=== PATIENT | female | born 1970 ===

== ENCOUNTER 2018-06-14 07:41 | Emergency (ER) | payer OTHER ==
[2018-06-14 07:57] VITALS: RESP 18; TEMP 98.3; BMI 61.6
[2018-06-14 10:28] VITALS: BP 148/74; PULSE 80; O2SAT 97
--- NOTE | 2018-06-14 11:52 | RAD ---
Date of service: 06/14/2018 PROCEDURE: Left Knee Radiographs. HISTORY: Posttraumatic pain COMPARISON: None. FINDINGS: BONES: No visible fracture. No acute fracture. Proliferative hypertrophic changes emanating from the femoral condyle and tibial plateau regions. Limited to the medial compartment JOINTS: Mild degenerative changes. JOINT EFFUSION: Small suprapatellar joint effusion. OTHER FINDINGS: None. IMPRESSION: No visible fracture. Mild degenerative change. Small suprapatellar joint effusion.
--- NOTE | 2018-06-14 12:31 | ED PDOC ---
Arrival/HPI - General Chief Complaint: Lower Extremity Problem/Injury Time Seen by Provider: 06/14/18 07:45 Historian: Patient - History of Present Illness Narrative History of Present Illness (Text): 06/14/18 12:29 A 47 year old female, whose past medical history includes right knee pain, presents to the emergency department complaining of left knee pain for the past 3 days. Patient ambulates with slight limp. Patient denies any trauma/falls, calf muscle pain, or any other complaints at this time. No PMD Past Medical History - Provider Review Nursing Documentation Reviewed: Yes - Psychiatric Hx Substance Use: No - Surgical History Hx Section: Yes Hx Cholecystectomy: Yes - Anesthesia Hx Anesthesia: Yes Hx Anesthesia Reactions: No Hx Malignant Hyperthermia: No Family/Social History - Physician Review Nursing Documentation Reviewed: Yes Family/Social History: No Known Family HX Smoking Status: Never Smoked Hx Alcohol Use: No Hx Substance Use: No Allergies/Home Meds Allergies/Adverse Reactions: Allergies metronidazole [From Flagyl] Allergy (Verified 06/14/18 07:55) RASH Home Medications: Home Meds Medication Instructions Recorded Confirmed Cetirizine HCl [Wal-Zyr] 10 mg PO PRN PRN 06/14/18 06/14/18 Meloxicam [Mobic] 15 mg PO DAILY 06/14/18 06/14/18 Review of Systems - Physician Review All systems were reviewed & negative as marked: Yes - Review of Systems Constitutional: absent: Other (no trauma/falls) Musculoskeletal: Other (left knee pain; no calf muscle pain.) Physical Exam Vital Signs Reviewed: Yes Vital Signs Temp Pulse Resp BP Pulse Ox 06/14/18 10:31 97 06/14/18 10:27 80 18 148/74 97 06/14/18 07:50 98.3 F 70 18 140/55 L 100 Temperature: Afebrile Blood Pressure: Normal Pulse: Regular Respiratory Rate: Normal Appearance: Positive for: Well-Appearing, Non-Toxic, Comfortable, Other (morbidly obese) Pain Distress: None Mental Status: Positive for: Alert and Oriented X 3 - Systems Exam Head: Present: Atraumatic, Normocephalic Neck: Present: Normal Range of Motion Respiratory/Chest: Present: Clear to Auscultation, Good Air Exchange. No: Respiratory Distress, Accessory Muscle Use Cardiovascular: Present: Regular Rate and Rhythm, Normal S1, S2. No: Murmurs Abdomen: No: Tenderness, Distention, Peritoneal Signs Back: Present: Normal Inspection Upper Extremity: Present: Normal Inspection. No: Cyanosis, Edema Lower Extremity: Present: NORMAL PULSES, Tenderness (lateral aspect of left knee). No: Normal ROM (decreased ROM due to pain secondary to pain.) Neurological: Present: GCS=15, CN II-XII Intact, Speech Normal Skin: Present: Warm, Dry, Normal Color. No: Rashes Psychiatric: Present: Alert, Oriented x 3, Normal Insight, Normal Concentration Medical Decision Making ED Course and Treatment: 06/14/18 12:30 Impression: 47 year old female with left knee pain. Physical exam shows tenderness to lateral aspect of left knee, good pulses, slight decreased ROM secondary to pain. Plan: -- Left Knee X-Ray -- Reassess and disposition Progress Notes: 06/14/2018 11:49 Left Knee X-ray IMPRESSION: No visible fracture. Mild degenerative changes. Small suprapatella joint effusion. Dictator: Dustin Christopher MD - RAD Interpretation Radiology Orders: 06/14/18 08:11 KNEE WITH PATELLA LEFT 3 VIEW [RAD] Stat - Scribe Statement The provider has reviewed the documentation as recorded by the Vinayibshanna Chadwick Provider Scribe Attestation: All medical record entries made by the Scribe were at my direction and personally dictated by me. I have reviewed the chart and agree that the record accurately reflects my personal performance of the history, physical exam, medical decision making, and the department course for this patient. I have also personally directed, reviewed, and agree with the discharge instructions and disposition. Disposition/Present on Arrival - Present on Arrival Any Indicators Present on Arrival: No History of DVT/PE: No History of Uncontrolled Diabetes: No Urinary Catheter: No History of Decub. Ulcer: No History Surgical Site Infection Following: None - Disposition Have Diagnosis and Disposition been Completed?: Yes Diagnosis: Knee sprain Disposition: HOME/ ROUTINE Disposition Time: 09:20 Condition: GOOD Discharge Instructions (ExitCare): Knee Sprain (DC) Additional Instructions: AARTI PETERS, thank you for letting us take care of you today. The emergency medical care you received today was directed at your acute symptoms. If you were prescribed any medication, please fill it and take as directed. It may take several days for your symptoms to resolve. Return to the Emergency Department if your symptoms worsen, do not improve, or if you have any other problems. Please contact your doctor or call one of the physicians/clinics you have been referred to that are listed on the Patient Visit Information form that is included in your discharge packet. Bring any paperwork you were given at discharge with you along with any medications you are taking to your follow up visit. Our treatment cannot replace ongoing medical care by a primary care provider outside of the emergency department. Thank you for allowing the [facility] team to be part of your care today. Follow up with your primary care doctor in 3-5 days for re-evaluation and further management. Referrals: [facility], [Non-Staff] - Follow up with primary Forms: [employer] ([place]altese), WORK NOTE
== END 2018-06-14 10:31 | disposition home or self-care (01) ==
LOC: ED 07:41
DX: S83.92XA Sprain of unspecified site of left knee, initial encounter (principal); X58.XXXA Exposure to other specified factors, initial encounter